=== PATIENT | female | born 1985 ===

== ENCOUNTER 2017-12-20 11:16 | Emergency (ER) | payer OTHER ==
[2017-12-20 12:45] LABS: SQUAMOUS EPITHIAL 2 /hpf (0-5); URINE BILIRUBIN NEGATIVE (NEGATIVE); URINE BLOOD 3+ (NEGATIVE); URINE CLARITY Hazy (Clear); URINE COLOR Yellow (YELLOW); URINE GLUCOSE (UA) NORMAL (Normal); URINE LEUKOCYTE ESTERASE NEG Leu/uL (Negative); URINE PROTEIN 2+ mg/dL (NEGATIVE)
[2017-12-20 12:51] LABS: HCG,QUALITATIVE URINE NEGATIVE (NEGATIVE)
[2017-12-20] MEDS ORDERED: Sodium Chloride 0.9% 1,000 ML IV STA (12:51)
[2017-12-20] MEDS ORDERED: Sodium Chloride 0.9% 1,000 ML ONE (12:59)
[2017-12-20 13:16] LABS: BASO % 0.4 % (0.0-2.0); HEMOGLOBIN 10.9 g/dL (11.0-16.0); LYMPH # 1.4 K/uL (1.0-4.3); MEAN CORPUSCULAR HEMOGLOBIN 25.3 pg (27.0-31.0); MEAN CORPUSCULAR HGB CONC 33.4 g/dL (33.0-37.0); MEAN PLATELET VOLUME 8.9 fL (7.2-11.7); MONO # 0.4 K/uL (0.0-0.8); MONO % 4.2 % (0.0-10.0); NEUT # 8.2 K/uL (1.8-7.0); NEUT % 81.4 % (50.0-75.0); RBC 4.3 Mil/uL (3.80-5.20); RED CELL DISTRIBUTION WIDTH 14.2 % (11.5-14.5); WHITE BLOOD COUNT 10.1 K/uL (4.8-10.8)
[2017-12-20 13:29] LABS: ALB/GLOB RATIO 0.9 (1.0-2.1); ALBUMIN 3.8 g/dL (3.5-5.0); ALT/SGPT 183 U/L (9-52); AMYLASE 47 U/L (30-110); AST/SGOT 69 U/L (14-36); BLOOD UREA NITROGEN 5 mg/dL (7-17); CALCIUM 8.6 mg/dl (8.6-10.4); GFR AFRICAN-AMERICAN > 60; GFR NON-AFRICAN AMERICAN > 60; LIPASE 48 U/L (23-300)
--- NOTE | 2017-12-20 14:00 | C.PDOC ---
History Of Present Illness Patient is a 32 y/o female who presents to the ED with complaints of fever, headache, and pain to bilateral wrists and legs. Patient notes experiencing chills and is currently menstruating. Patient denies any cough, runny nose, sick contacts, or other symptoms at this time. Time Seen by Provider: 12/20/17 11:30 Chief Complaint (Nursing): Fever History Per: Patient History/Exam Limitations: no limitations Onset/Duration Of Symptoms: Days Current Symptoms Are (Timing): Still Present Associated Symptoms: Fever, Chills. denies: Cough Recent travel outside of the [place]: No Past Medical History Reviewed: Historical Data, Nursing Documentation, Vital Signs Vital Signs: Last Vital Signs Temp 99.0 F 12/20/17 15:29 Pulse 105 H 12/20/17 15:29 Resp 20 12/20/17 15:29 BP 112/77 12/20/17 15:29 Pulse Ox 95 12/20/17 15:29 - Medical History PMH: No Chronic Diseases Surgical History: No Surg Hx Family History: States: No Known Family Hx - Social History Hx Alcohol Use: No Hx Substance Use: No Review Of Systems Constitutional: Positive for: Fever, Chills ENT: Negative for: Nose Discharge Respiratory: Negative for: Cough Musculoskeletal: Positive for: Arm Pain (bilateral wrist pain), Leg Pain ( bilateral) Neurological: Positive for: Headache Physical Exam - Physical Exam Appears: Well, No Acute Distress Skin: Normal Color, No Rash Head: Atraumatic, Normacephalic Eye(s): bilateral: Normal Inspection Ear(s): Bilateral: Normal Nose: Normal, No Discharge Oral Mucosa: Moist Tongue: Normal Appearing Lips: Normal Appearing Throat: Normal, No Erythema, No Exudate, No Drooling Neck: Normal, Supple Lymphatic: Normal Exam, No Adenopathy Chest: Symmetrical, No Deformity Cardiovascular: Rhythm Regular Respiratory: Normal Breath Sounds, No Accessory Muscle Use, No Wheezing Gastrointestinal/Abdominal: Normal Exam, Soft, No Tenderness Back: Normal Inspection Extremity: Normal ROM (x4), No Tenderness, No Calf Tenderness, No Deformity, No Swelling Neurological/Psych: Oriented x3, Normal Speech, Normal Cognition ED Course And Treatment - Laboratory Results Result Diagrams: 12/20/17 13:13 12/20/17 13:13 O2 Sat by Pulse Oximetry: 100 Progress Note: CXR and blood work ordered. Tylenol and IV fluids administered. Disposition - Disposition Referrals: [facility] [Outside] Disposition: HOME/ ROUTINE Disposition Time: 14:58 Condition: STABLE Additional Instructions: Follow up with PMD/Clinic within 1-2 days. Return to ED if feel worse. Prescriptions: Ibuprofen [Motrin Tab] 600 mg PO Q8 #30 tab Oseltamivir [Tamiflu] 75 mg PO BID #9 cap Instructions: Viral Syndrome (DC) Forms: [employer] (Bangladeshi) Print Language: TAJIK - Clinical Impression Clinical Impression: Influenza-like illness - Scribe Statement The provider has reviewed the documentation as recorded by the Scribe Krystyna Herrera All medical record entries made by the Scribe were at my direction and personally dictated by me. I have reviewed the chart and agree that the record accurately reflects my personal performance of the history, physical exam, medical decision making, and the department course for this patient. I have also personally directed, reviewed, and agree with the discharge instructions and disposition.
[2017-12-20 14:33] VITALS: PULSE 105
--- NOTE | 2017-12-20 15:03 | RAD ---
Chest x-ray two views History: Fever. Comparison: None available. Findings : No focal infiltrate or effusion. Bibasilar breast and nipple shadows. Tortuous aorta. Heart size within normal limits. Impression: No focal infiltrate or effusion.
[2017-12-20 15:30] VITALS: BP 112/77; RESP 20; TEMP 99
[2017-12-20 22:47] VITALS: O2SAT 100
== END 2017-12-20 15:29 | disposition home or self-care (01) ==
LOC: C.ER 11:16
DX: J11.1 Influenza due to unidentified influenza virus with other respiratory manifestations (principal)
CPT/HCPCS: 71046; 80053; 81001; 82150; 82550; 83690; 83735; 84703; 85025; 87040; 87086; 87804; 96360; 99285; J7040